=== PATIENT | male | born 1980 ===

== ENCOUNTER 2016-09-09 16:03 | Observation (INO) | payer SELFPAY ==
--- NOTE | 2016-09-09 17:38 | C.PDOC ---
History Of Present Illness 39yo male, is brought to the emergency department with complaints of acute alcohol intoxication. All other Hx limited due to intoxication. Patient does not appear to be in any distress Chief Complaint (Nursing): Substance Abuse History Per: EMS History/Exam Limitations: intoxication Current Symptoms Are (Timing): Still Present Past Medical History Reviewed: Historical Data, Nursing Documentation, Vital Signs Vital Signs: Last Vital Signs Temp 98.5 F 09/09/16 16:10 Pulse 101 H 09/09/16 16:10 Resp 20 09/09/16 16:10 BP 130/73 09/09/16 16:10 Pulse Ox 95 09/09/16 17:38 Family History: States: No Known Family Hx - Social History Hx Alcohol Use: Yes (unable to obtain) Hx Substance Use: Yes - Immunization History Hx Tetanus Toxoid Vaccination: No Hx Influenza Vaccination: No Hx Pneumococcal Vaccination: No Review Of Systems Review Of Systems: ROS cannot be obtained secondary to pt's inabilty to answer questions. Physical Exam - Physical Exam Appears: Non-toxic, No Acute Distress Skin: Warm, Dry, No Rash Eye(s): bilateral: Normal Inspection Neck: Normal ROM Cardiovascular: Rhythm Regular, No Murmur Respiratory: Normal Breath Sounds, No Accessory Muscle Use Back: Normal Inspection Extremity: Normal ROM ED Course And Treatment O2 Sat by Pulse Oximetry: 95 Medical Decision Making Medical Decision Makinpm: Patient signed out to Dr. Whitley, pending sobriety. Disposition - Disposition Disposition Time: 19:00 Condition: GOOD - Clinical Impression Clinical Impression: Alcohol intoxication - Scribe Statement The provider has reviewed the documentation as recorded by the Yaneth Figueroa All medical record entries made by the Scribmary were at my direction and personally dictated by me. I have reviewed the chart and agree that the record accurately reflects my personal performance of the history, physical exam, medical decision making, and the department course for this patient. I have also personally directed, reviewed, and agree with the discharge instructions and disposition.
[2016-09-10 00:57] VITALS: O2SAT 96
[2016-09-10 05:12] VITALS: BP 127/75; PULSE 81; RESP 18; TEMP 98.1
== END 2016-09-10 05:12 | disposition home or self-care (01) ==
LOC: C.ER 16:03 → EDBD 17:33 → C.9OBSV 17:33
PROVIDERS: ADMIT Emergency Medicine; ATTEND Emergency Medicine
DX: F10.129 Alcohol abuse with intoxication, unspecified (principal); Y90.9 Presence of alcohol in blood, level not specified